=== PATIENT | female | born 1980 | race Caucasian/White ===

== ENCOUNTER → 2016-08-21 | Outpatient (CLI) | payer MEDICARE, MEDICAID ==
[2016-08-21 09:30] LABS: BASOPHIL % 0.5 %; EOSINOPHIL # 0.1 K/uL (0.0-0.5); EOSINOPHIL % 1.7 %; HEMATOCRIT 41.2 % (33.0-46.0); HEMOGLOBIN 14.4 g/dL (11.0-15.0); IMMATURE GRANULOCYTE % 0.3 %; LYMPHOCYTE # 2.9 K/uL (0.8-4.0); LYMPHOCYTE % 37.3 %; MCH 28.6 pg (27.0-34.0); MCV 81.7 fl (83.0-98.0); MONOCYTE # 0.5 K/uL (0.0-1.0); MONOCYTE % 5.8 %; MPV 9.2 fl (9.4-12.4); NEUTROPHIL # (ANC) 4.3 K/uL (1.8-7.8); NEUTROPHIL % 54.4 %; NRBC % 0 /100WBC (0-0.00); PLATELET COUNT 329 K/uL (150-450); RBC 5.04 M/uL (3.50-5.50); RDW-CV 12.6 % (11.9-14.6); WBC 7.8 K/uL (4.0-11.0)
== END | disposition disaster alternative care site (69) ==
LOC: GLAB 09:04
PROVIDERS: Nurse Practitioner Psychiatric/Mental Health
DX: F43.12 Post-traumatic stress disorder, chronic (principal); F90.2 Attention-deficit hyperactivity disorder, combined type; F28 Other psychotic disorder not due to a substance or known physiological condition; F42.4 Excoriation (skin-picking) disorder

== ENCOUNTER → 2016-09-21 | Outpatient (CLI) | payer MEDICARE, MEDICAID | END | disposition disaster alternative care site (69) | LOC: GLAB 16:27 | DX: I73.00 Raynaud's syndrome without gangrene (principal); E55.9 Vitamin D deficiency, unspecified; R53.83 Other fatigue; Z79.899 Other long term (current) drug therapy ==

== ENCOUNTER → 2016-09-25 | Outpatient (CLI) | payer MEDICARE, MEDICAID ==
[2016-09-25 09:08] LABS: BASOPHIL # 0.1 K/uL (0.0-0.2); BASOPHIL % 0.6 %; EOSINOPHIL # 0.2 K/uL (0.0-0.5); HEMATOCRIT 41.3 % (33.0-46.0); HEMOGLOBIN 13.9 g/dL (11.0-15.0); IMMATURE GRANULOCYTE # 0.1 K/uL (0.0-0.3); IMMATURE GRANULOCYTE % 0.6 %; LYMPHOCYTE # 3.6 K/uL (0.8-4.0); LYMPHOCYTE % 42.7 %; MCHC 33.7 gm/dL (32.0-36.5); MCV 83.1 fl (83.0-98.0); MONOCYTE # 0.6 K/uL (0.0-1.0); MONOCYTE % 7.3 %; NEUTROPHIL % 46.8 %; NRBC % 0 /100WBC (0-0.00); PLATELET COUNT 366 K/uL (150-450); RBC 4.97 M/uL (3.50-5.50); RDW-CV 12.8 % (11.9-14.6); WBC 8.5 K/uL (4.0-11.0)
== END | disposition disaster alternative care site (69) ==
LOC: GLAB 09-24 09:16
PROVIDERS: Nurse Practitioner Psychiatric/Mental Health
DX: F43.12 Post-traumatic stress disorder, chronic (principal); F90.2 Attention-deficit hyperactivity disorder, combined type; F28 Other psychotic disorder not due to a substance or known physiological condition; F42.4 Excoriation (skin-picking) disorder

== ENCOUNTER → 2016-10-16 | Outpatient (CLI) | payer MEDICARE, MEDICAID | END | disposition disaster alternative care site (69) | LOC: LFPA 10:50 | DX: F72 Severe intellectual disabilities (principal) ==